=== PATIENT | male | born 1965 | race Caucasian/White ===

== ENCOUNTER 2018-04-05 19:00 | Emergency (ER) | payer SELFPAY ==
[2018-04-05] MEDS ORDERED: Ibuprofen 800 MG TAB ONE (20:06)
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
== END 2018-04-05 20:10 | disposition home or self-care (01) ==
LOC: ERS 19:00
DX: M25.511 Pain in right shoulder (principal); M25.512 Pain in left shoulder; I10 Essential (primary) hypertension; V89.2XXA Person injured in unspecified motor-vehicle accident, traffic, initial encounter
CPT/HCPCS: 70450; 72125; G0390